=== PATIENT | male | born 1990 | race Caucasian/White ===

== ENCOUNTER 2022-03-17 21:16 | Emergency (ER) | payer SELFPAY ==
[~2022-03-17] VITALS: Ht 175.3 cm; Wt 70.0 kg
[2022-03-17 22:06] VITALS: BP 147/76
[2022-03-17] MEDS ORDERED: LORAZEPAM 0.5MG TABLET PO ONE (23:00)
== END 2022-03-18 00:16 | disposition home or self-care (01) ==
LOC: ER 21:16
DX: F15.980 Other stimulant use, unspecified with stimulant-induced anxiety disorder (principal); F15.94 Other stimulant use, unspecified with stimulant-induced mood disorder; F10.99 Alcohol use, unspecified with unspecified alcohol-induced disorder; Y90.9 Presence of alcohol in blood, level not specified
CPT/HCPCS: 99283